=== PATIENT | female | born 1955 | race Hispanic/Latino ===

== ENCOUNTER → 2019-02-21 | Day surgery (SDC) | payer OTHER ==
[2019-02-15 15:07] LABS: BASOPHILS % 0.4 % (0.0-1.0); EOSINOPHILS # (AUTO) 0.4 (0.0-0.4); EOSINOPHILS % 5.4 % (0.0-6.0); HEMATOCRIT 30.8 % (34.2-44.1); HEMOGLOBIN 10.1 g/dL (12.0-16.0); LYMPHOCYTES # (AUTO) 2.8 (1.0-3.2); LYMPHOCYTES % 39.2 % (18.0-39.1); MEAN CORPUSCULAR HEMOGLOBIN 29.4 pg (28-32); MEAN CORPUSCULAR HGB CONC 32.8 g/dL (31-35); MEAN CORPUSCULAR VOLUME 89.5 fL (81-99); MONOCYTES # (AUTO) 0.7 (0.2-0.8); MONOCYTES % 9.4 % (4.4-11.3); NEUTROPHILS # (AUTO) 3.2 (2.1-6.9); NEUTROPHILS % 45.3 % (38.7-80.0); PLATELET COUNT 341 x10e3/uL (140-360); RED BLOOD COUNT 3.44 x10e6/uL (3.6-5.1); RED CELL DISTRIBUTION WIDTH 13.2 % (11.7-14.4)
[2019-02-15 15:23] LABS: ALANINE AMINOTRANSFERASE 19 IU/L (0-55); ALBUMIN 4.4 g/dL (3.5-5.0); ALBUMIN/GLOBULIN RATIO 1.2 (0.8-2.0); ALKALINE PHOSPHATASE 88 IU/L (40-150); ANION GAP 15.5 mmol/L (8-16); BLOOD UREA NITROGEN 15 mg/dL (7-26); BUN/CREATININE RATIO 18 (6-25); CALCIUM 9.8 mg/dL (8.4-10.2); CARBON DIOXIDE 24 mmol/L (22-29); CHLORIDE 104 mmol/L (98-107); CREATININE, SERUM 0.83 mg/dL (0.57-1.11); EST GLOMERULAR FILTRATION RATE > 60 ML/MIN (60-); POTASSIUM 4.5 mmol/L (3.5-5.1); SODIUM 139 mmol/L (136-145)
[2019-02-15 15:27] LABS: GLUCOSE 43 mg/dL (74-118)
[~2019-02-21] VITALS: Ht 165.1 cm; Wt 79.8 kg
[2019-02-21] VITALS (9 sets, daily range): BP systolic 128–169; BP diastolic 61–78
[~2019-02-21] MED LIST: ALPRAZOLAM 0.5 MG TAB ONE; AMLODIPINE BESY10 MG PO; ASPIRIN 325 MG TAB ONE; ASPIRIN BUFFER325 MG PO; ASPIRIN325 MG PO; BENICAR HCT 201 EACH PO; CLOPIDOGREL75 MG PO; DIPHENHYDRAMINE HCL 25 MG CAP ONE; FENTANYL CITRATE/PF 100MCG/2 ML INJ ONE; GLIMEPIRIDE2 MG PO; HEPARIN SOD/SOD CHLORIDE 2,000 ML ONE; HYDROCODONE/APAP 5MG-325MG TAB ONE; IOPAMIDOL 300MG/ML 100 ML INFUS..BTL IV ONE; LIDOCAINE HCL 2% LOCAL 20 ML VIAL ONE; LISINOPRIL10 MG PO; LOVASTATIN20 MG; METFORMIN HCL500 MG PO; MIDAZOLAM HCL 2 MG/2 ML VIAL ONE; PRASUGREL 10 MG TAB ONE; PROTAMINE SULFATE 10 MG/ML 5 ML VIAL ONE; SODIUM CHLORIDE 0.9% 1000ML 1,000 ML ONE; SOMA350 MG PO; TOPROL XL50 MG PO; VERAPAMIL HCL 2.5 MG/ML 2 ML VIAL ONE
--- NOTE | 2019-02-21 10:59 | NUR ---
1059 Received pt to room #9,bedside report received from SAMANTHA Saunders. Alert oriented and appropriate, PERRLA, respirations even and unlabored to room air. Pulses x4 extremeness equal and strong. Pedal pulses PT/DP x4 doppler left rt palpable and marked. Cap fill brisk < 3 sec. left groin ooziing manual pressure applied Nicky 5min and Lizzeth Gonzalez 5min. Skin warm and dry integrity appears D/I. IV 22g to left arm. 100cchr After pressure applied site stabilized and new Marisa patch applied. No gross issues pain,pallor or pressure Wedge dressing over marisa patch. Order tray family called to bedside. Presents healthy w/o s/s of infiltration or complaint. Abdomen soft and supple. pt offered toileting, denies need to urinate or defecate. No personal affects with patient. Family XXXXX. Pt and family verbalizes understanding of POC. Currently w/o complaint of pain or need. Void on bed wong qs. ds/rn
--- NOTE | 2019-02-21 13:20 | NUR ---
1320 medicated with Narco 325/5mgx 1 for pain to left femoral doesnt want morphine iv for pain Preparing family for dc Dc teaching completed and teaching completed ds/rn
--- NOTE | 2019-02-21 13:26 | Operative Report ---
DATE OF PROCEDURE: 02/21/2019 SURGEON: Yrn Silva MD INDICATIONS: 1. Peripheral arterial disease. 2. Carotid stenosis. PROCEDURES PERFORMED: 1. Bilateral extracranial carotid angiograms with extracranial carotid imaging. 2. Abdominal aortogram. 3. Bilateral lower extremity angiograms. 4. Third-order catheter placement from the left femoral artery to right superficial femoral artery. 5. Additional third-order catheter placement from the left femoral artery to right anterior tibial artery. 6. Atherectomy and drug-coated balloon angioplasty of the right superficial femoral artery. 7. Secondary thrombectomy of the right superficial femoral artery. 8. Deployment of left groin Angio-Seal closure device. COMPLICATIONS: None. RECOMMENDATIONS: Staged atherectomy of the left proximal femoral artery via right radial approach. BLOOD LOSS: Minimal. DESCRIPTION OF PROCEDURE: Access obtained in the left femoral artery. A 6-Y[place]ut sheath was placed. Extracranial carotid angiograms were performed bilaterally demonstrated 50% internal carotid artery stenosis on both sides. No intervention necessary. Abdominal aortogram demonstrated widely patent abdominal aorta and iliacs with mild plaque. The sheath was advanced in the left femoral artery to right superficial femoral artery. Mid right superficial femoral artery 90% stenosis, proximal left superficial femoral artery 80% stenosis. The catheter was then advanced to the right anterior tibial artery with 3-vessel runoff to the right foot. A decision was made to intervene on the right superficial femoral artery. The patient received heparin for anticoagulation. The sheath was exchanged to a 45 cm 6-Y[place]ut sheath, advanced in the left femoral artery to right superficial femoral artery. Orbital atherectomy was performed with a 1.5 mm CSI device. Large amounts of visible thrombus were noted for which manual aspiration thrombectomy was needed of the right femoral artery. Balloon angioplasty with a 5 mm drug-coated balloon was performed with excellent end result, less than 10% stenosis, 3- vessel runoff to the right foot. No complications. Left groin repaired using Angio-Seal closure device. The patient was discharged home the same day. MD KEKE Garg/ARIAL /[id number]
--- NOTE | 2019-02-21 13:30 | NUR ---
1330Pt meets DC criteria. left femoral site assessed for s/s of complication and presence of hematoma. Skin warm, dry, no discolor, and pulses present. IV removed from hand. Distal tip appears intact. VS WNL. Pt denies pain, sob, or need at this time. Family at bedside Review of discharge paperwork and follow up instructions. verbalized understanding. Pt to wheelchair and transported to front of hospital. Transferred to private vehicle under own strength w/o incident with DC paperwork in hand. - ds/rn
== END | disposition home or self-care (01) ==
LOC: CATH LAB 08:12
PROVIDERS: ATTEND Internal Medicine Interventional Cardiology
DX: I73.9 Peripheral vascular disease, unspecified (principal); I65.23 Occlusion and stenosis of bilateral carotid arteries; I25.10 Atherosclerotic heart disease of native coronary artery without angina pectoris; I77.9 Disorder of arteries and arterioles, unspecified; I10 Essential (primary) hypertension; E11.9 Type 2 diabetes mellitus without complications; Z01.812 Encounter for preprocedural laboratory examination; Z79.84 Long term (current) use of oral hypoglycemic drugs; Z79.82 Long term (current) use of aspirin; Z79.02 Long term (current) use of antithrombotics/antiplatelets
CPT/HCPCS: 36222; 36415 ×2; 37186; 37225; 75625; 80053; 82948; 85025; C1724; C1760 ×2; C1769 ×3; C1887 ×2; J2001; J2250; J2720; J3010; J7030; Q9967; 36247; 75716; 99152; 99153

== ENCOUNTER → 2020-05-28 | Day surgery (SDC) | payer OTHER ==
[2020-05-23 12:30] LABS: BASOPHILS % 0.5 % (0.0-1.0); EOSINOPHILS # (AUTO) 0.3 (0.0-0.4); EOSINOPHILS % 4.5 % (0.0-6.0); HEMATOCRIT 30.9 % (34.2-44.1); HEMOGLOBIN 10.3 g/dL (12.0-16.0); LYMPHOCYTES # (AUTO) 3.1 (1.0-3.2); MEAN CORPUSCULAR HEMOGLOBIN 28.9 pg (28-32); MEAN CORPUSCULAR HGB CONC 33.3 g/dL (31-35); MEAN CORPUSCULAR VOLUME 86.6 fL (81-99); MONOCYTES # (AUTO) 0.5 (0.2-0.8); MONOCYTES % 7.3 % (4.4-11.3); NEUTROPHILS # (AUTO) 3.4 (2.1-6.9); NEUTROPHILS % 45.6 % (38.7-80.0); PLATELET COUNT 327 x10e3/uL (140-360); RED BLOOD COUNT 3.57 x10e6/uL (3.6-5.1); RED CELL DISTRIBUTION WIDTH 12.7 % (11.7-14.4)
[2020-05-23 12:57] LABS: ALBUMIN 4.3 g/dL (3.5-5.0); ALBUMIN/GLOBULIN RATIO 1.1 (0.8-2.0); ANION GAP 15.5 mmol/L (8-16); CALCIUM 9.1 mg/dL (8.4-10.2); POTASSIUM 4.5 mmol/L (3.5-5.1)
[~2020-05-28] VITALS: Ht 165.1 cm; Wt 90.7 kg
[2020-05-28] VITALS (8 sets, daily range): BP systolic 131–158; BP diastolic 54–72
[~2020-05-28] MED LIST changes: +AMARYL2 MG PO; -ASPIRIN 325 MG TAB ONE; +HEPARIN SOD (PORCINE) 1000 UNIT/ML 30ML ONE; -HYDROCODONE/APAP 5MG-325MG TAB ONE; -PRASUGREL 10 MG TAB ONE; +PRINIVIL20 MG PO; -VERAPAMIL HCL 2.5 MG/ML 2 ML VIAL ONE
== END | disposition home or self-care (01) ==
LOC: CATH LAB 11:27
PROVIDERS: ATTEND Internal Medicine Interventional Cardiology
DX: I25.10 Atherosclerotic heart disease of native coronary artery without angina pectoris (principal); I70.202 Unspecified atherosclerosis of native arteries of extremities, left leg; I70.92 Chronic total occlusion of artery of the extremities; Z01.812 Encounter for preprocedural laboratory examination; Z20.822 Contact with and (suspected) exposure to COVID-19
CPT/HCPCS: 36247; 36415; 75630; 76937 ×2; 80053; 85025; 93458; C1760; C1769 ×2; C1887; J1644; J2001; J2250; J2720; J3010; J7030; Q9967; U0002; 99152; 99153

== ENCOUNTER → 2020-06-25 | Day surgery (SDC) | payer OTHER ==
[2020-06-21 09:23] LABS: BASOPHILS # (AUTO) 0.1 (0.0-0.1); BASOPHILS % 0.5 % (0.0-1.0); EOSINOPHILS # (AUTO) 0.4 (0.0-0.4); EOSINOPHILS % 3.6 % (0.0-6.0); HEMATOCRIT 33.6 % (34.2-44.1); HEMOGLOBIN 11.3 g/dL (12.0-16.0); LYMPHOCYTES # (AUTO) 2.8 (1.0-3.2); LYMPHOCYTES % 28.6 % (18.0-39.1); MEAN CORPUSCULAR HGB CONC 33.6 g/dL (31-35); MEAN CORPUSCULAR VOLUME 86.4 fL (81-99); MONOCYTES # (AUTO) 0.7 (0.2-0.8); MONOCYTES % 6.9 % (4.4-11.3); NEUTROPHILS # (AUTO) 5.8 (2.1-6.9); NEUTROPHILS % 60.1 % (38.7-80.0); PLATELET COUNT 363 x10e3/uL (140-360); RED BLOOD COUNT 3.89 x10e6/uL (3.6-5.1); RED CELL DISTRIBUTION WIDTH 12.1 % (11.7-14.4)
[2020-06-21 09:30] LABS: ALBUMIN 4.4 g/dL (3.5-5.0); ALBUMIN/GLOBULIN RATIO 1.1 (0.8-2.0); ANION GAP 12.4 mmol/L (8-16); CALCIUM 9.4 mg/dL (8.4-10.2); CREATININE, SERUM 1.1 mg/dL (0.57-1.11); POTASSIUM 5.4 mmol/L (3.5-5.1)
[~2020-06-25] VITALS: Ht 165.1 cm; Wt 90.7 kg
[2020-06-25] VITALS (7 sets, daily range): BP systolic 100–129; BP diastolic 46–75
[~2020-06-25] MED LIST changes: +ASPIRIN 325 MG TAB ONE; -HEPARIN SOD (PORCINE) 1000 UNIT/ML 30ML ONE; +PRASUGREL 10 MG TAB ONE; -PROTAMINE SULFATE 10 MG/ML 5 ML VIAL ONE; +TYLENOL # 31 EA PO
== END | disposition home or self-care (01) ==
LOC: CATH LAB 11:29
PROVIDERS: ATTEND Internal Medicine Interventional Cardiology
DX: I70.212 Atherosclerosis of native arteries of extremities with intermittent claudication, left leg (principal); I70.92 Chronic total occlusion of artery of the extremities; I25.10 Atherosclerotic heart disease of native coronary artery without angina pectoris; Z95.820 Peripheral vascular angioplasty status with implants and grafts; Z01.812 Encounter for preprocedural laboratory examination; Z20.822 Contact with and (suspected) exposure to COVID-19; Z79.02 Long term (current) use of antithrombotics/antiplatelets; Z79.82 Long term (current) use of aspirin; Z79.84 Long term (current) use of oral hypoglycemic drugs
CPT/HCPCS: 36415 ×2; 37186; 37225; 75710; 76937; 80053; 82948; 85025; C1714; C1769 ×2; C1887; C2623; J2001; J2250; J3010; J7030; Q9967; U0002; 37228; 37229; 99152; 99153

== ENCOUNTER → 2021-10-24 | Outpatient (CLI) | payer OTHER ==
[~2021-10-24] MED LIST changes: -ALPRAZOLAM 0.5 MG TAB ONE; -ASPIRIN 325 MG TAB ONE; -DIPHENHYDRAMINE HCL 25 MG CAP ONE; -FENTANYL CITRATE/PF 100MCG/2 ML INJ ONE; -HEPARIN SOD/SOD CHLORIDE 2,000 ML ONE; -IOPAMIDOL 300MG/ML 100 ML INFUS..BTL IV ONE; -LIDOCAINE HCL 2% LOCAL 20 ML VIAL ONE; -MIDAZOLAM HCL 2 MG/2 ML VIAL ONE; -PRASUGREL 10 MG TAB ONE; -SODIUM CHLORIDE 0.9% 1000ML 1,000 ML ONE
[2021-10-24 14:46] LABS: BASOPHILS % 0.5 % (0.0-1.0); EOSINOPHILS # (AUTO) 0.3 (0.0-0.4); HEMATOCRIT 33.8 % (34.2-44.1); HEMOGLOBIN 11.2 g/dL (12.0-16.0); LYMPHOCYTES # (AUTO) 3.5 (1.0-3.2); LYMPHOCYTES % 40.9 % (18.0-39.1); MEAN CORPUSCULAR HEMOGLOBIN 28.5 pg (28-32); MEAN CORPUSCULAR HGB CONC 33.1 g/dL (31-35); MONOCYTES # (AUTO) 0.6 (0.2-0.8); MONOCYTES % 6.5 % (4.4-11.3); NEUTROPHILS % 47.9 % (38.7-80.0); PLATELET COUNT 347 x10e3/uL (140-360); RED BLOOD COUNT 3.93 x10e6/uL (3.6-5.1); RED CELL DISTRIBUTION WIDTH 12.1 % (11.7-14.4)
[2021-10-24 15:05] LABS: ALANINE AMINOTRANSFERASE 28 IU/L (0-55); ALBUMIN/GLOBULIN RATIO 0.9 (0.8-2.0); ALKALINE PHOSPHATASE 102 IU/L (40-150); ANION GAP 12.8 mmol/L (8-16); BLOOD UREA NITROGEN 22 mg/dL (7-26); BUN/CREATININE RATIO 19 (6-25); CALCIUM 9.6 mg/dL (8.4-10.2); CARBON DIOXIDE 26 mmol/L (22-29); CHLORIDE 101 mmol/L (98-107); CREATININE, SERUM 1.17 mg/dL (0.57-1.11); GLUCOSE 202 mg/dL (74-118); POTASSIUM 4.8 mmol/L (3.5-5.1); SODIUM 135 mmol/L (136-145)
== END ==
LOC: LAB 14:32 → EDSTATUS 10-28 16:00
PROVIDERS: ATTEND Internal Medicine Interventional Cardiology
DX: Z01.812 Encounter for preprocedural laboratory examination (principal); I73.9 Peripheral vascular disease, unspecified
CPT/HCPCS: 0223U; 36415; 80053; 85025